=== PATIENT | female | born 1980 | race American Indian/Alaskan Native ===

== ENCOUNTER 2019-11-21 10:13 | Emergency (ER) | payer BC, OTHER ==
--- NOTE | 2019-11-21 11:48 | Event Note ---
ED Screening Note Date of service: 11/21/19 Time: 12:08 ED Screening Note: 39 y o female presents to ED cc of Nosebleed x this am with headache after incident Right Nostril x 3 minutes intermittent first episode no bleed in triage This initial assessment/diagnostic orders/clinical plan/treatment(s) is/are subject to change based on patients health status, clinical progression and re- assessment by fellow clinical providers in the ED. Further treatment and workup at subsequent clinical providers discretion. Patient/guardian urged not to elope from the ED as their condition may be serious if not clinically assessed and managed. Initial orders include: acc eval
[2019-11-21 12:11] VITALS: BP 115/78
[2019-11-21 13:12] LABS: Partial Thromboplastin Time 29.4 Sec. (24.2-36.6)
--- NOTE | 2019-11-21 15:00 | XRay Report ---
CHEST 2 VIEWS INDICATION / CLINICAL INFORMATION: cough. COMPARISON: None available. FINDINGS: SUPPORT DEVICES: None. HEART / MEDIASTINUM: No significant abnormality. LUNGS / PLEURA: No significant pulmonary or pleural abnormality. No pneumothorax. ADDITIONAL FINDINGS: No significant additional findings. IMPRESSION: 1. No acute findings. Signer Name: Alcno Garcia MD Signed: 11/21/2019 2:55 PM Workstation Name: [id number]
--- NOTE | 2019-11-21 16:45 | Cat Scan Report ---
CT BRAIN: 11/21/2019 INDICATION / CLINICAL INFORMATION: headache. COMPARISON: None available. FINDINGS: BRAIN/INTRACRANIAL STRUCTURES: Unenhanced CT images of the brain demonstrate no evidence of acute int racranial abnormality. Ventricles and sulci are normal in size and shape. There is no evidence of acute ischemic injury, hemorrhage, or mass. There are no abnormal extra-axial fluid collections. EXTRACRANIAL STRUCTURES: Incidental note is made of prominent posterior nasopharyngeal lymphoid tissu e, with no evidence of focal mass, within the limits of this technique. IMPRESSION: Negative unenhanced CT of the brain. All CT scans at this location are performed using dose reduction to ALARA by means of automated expos ure control. Signer Name: Jamarcus Aguayo MD Signed: 11/21/2019 4:41 PM Workstation Name: [id number]
--- NOTE | 2019-11-21 16:45 | Emergency Department Report ---
Upper Respiratory HPI - HPI Chief Complaint: Upper Respiratory Infection Stated Complaint: NOSWE BLEED, FEVER, BONES HURT Time Seen by Provider: 11/21/19 14:27 Duration: 2 Days URI Symptoms: Rhinorrhea: Yes, Sore Throat: No, Ear Pain: No, Cough: Yes, Shortness of Breath: No, Sick Contacts: No, Unable to Take Fluids: No, Urine Output Abnormal: No, Listless Behavior: No Other History: This is a 39-year-old male nontoxic, well nourished in appearance, no acute signs of distress presents to the ED with c/o of productive cough, nose bleed, headache, rhinorrhea, nasal congestion x2 days. Patient describes headache as diffuse with level of 3 out of 10. Patient denies thunderclap headache. Patient denies any radiation of pain. Patient denies any head trauma. Patient denies any visual changes. Patient denies worse headache. Patient describes productive cough as yellow mucus production. Patient deneis any sick contacts. Paient stated symptoms of nose bleed has been resolved since 9 AM. Patient denies any recent travels, long car, recent hospital stays. Patient denies any calf pain or calf tenderness. Patient denies any chest pain, short of breath, fever, chills, nausea, vomiting, hemoptysis, numbness, tingling, headache or stiff neck. Patient denies any allergies. - Home Meds and Allergies Home Medications: Previous Rx's Medication Instructions Recorded Last Taken Type Pnv95/Ferrous Fumarate/FA 1 each PO QDAY #30 tablet 12/07/13 03/27/14 Rx [ Vitamins] HYDROcodone/APAP 7.5-325 [[place] 1 each PO Q6HR PRN #16 tablet 06/16/14 Unknown Rx 7.5-325 mg TAB] Hydrocortisone 2.5% [Hytone 2.5% 1 applicatio TP TID #30 gm 06/16/14 Unknown Rx CREAM] Sulfamethoxazole/Trimethoprim 1 each PO Q12H #20 tablet 06/16/14 Unknown Rx [Bactrim Ds] Cyclobenzaprine [Flexeril] 10 mg PO BID PRN #10 tablet 07/27/17 Unknown Rx Ibuprofen [Motrin 600 MG tab] 600 mg PO Q8H PRN #30 tablet 07/27/17 Unknown Rx Azithromycin [Zithromax Z-ROXANE] 250 mg PO DAILY #6 tablet 11/21/19 Unknown Rx Benzonatate [Tessalon Perles] 100 mg PO Q8HR PRN #20 capsule 11/21/19 Unknown Rx Allergies/Adverse Reactions: Allergies Allergy/AdvReac Type Severity Reaction Status Date / Time No Known Allergies Allergy Verified 06/09/13 13:22 ED Review of Systems ROS: Stated complaint: NOSWE BLEED, FEVER, BONES HURT Other details as noted in HPI Constitutional: denies: chills, fever Eyes: denies: eye pain, eye discharge, vision change ENT: epistaxis, congestion. denies: ear pain, throat pain Respiratory: cough. denies: shortness of breath, wheezing Cardiovascular: denies: chest pain, palpitations Endocrine: no symptoms reported Gastrointestinal: denies: abdominal pain, nausea, diarrhea Genitourinary: denies: urgency, dysuria, discharge Musculoskeletal: denies: back pain, joint swelling, arthralgia Skin: denies: rash, lesions Neurological: headache. denies: weakness, paresthesias Psychiatric: denies: anxiety, depression Hematological/Lymphatic: denies: easy bleeding, easy bruising ED Past Medical Hx - Past Medical History Previous Medical History?: No Additional medical history: Vaginal delivery x 4 - Surgical History Past Surgical History?: No - Social History Smoking Status: Current Every Day Smoker Substance Use Type: Alcohol - Medications Home Medications: Home Medications Medication Instructions Recorded Confirmed Last Taken Type Pnv95/Ferrous Fumarate/FA 1 each PO QDAY #30 tablet 12/07/13 06/16/14 03/27/14 Rx [ Vitamins] HYDROcodone/APAP 7.5-325 [[place] 1 each PO Q6HR PRN #16 tablet 06/16/14 Unknown Rx 7.5-325 mg TAB] Hydrocortisone 2.5% [Hytone 2.5% 1 applicatio TP TID #30 gm 06/16/14 Unknown Rx CREAM] Sulfamethoxazole/Trimethoprim 1 each PO Q12H #20 tablet 06/16/14 Unknown Rx [Bactrim Ds] Cyclobenzaprine [Flexeril] 10 mg PO BID PRN #10 tablet 07/27/17 Unknown Rx Ibuprofen [Motrin 600 MG tab] 600 mg PO Q8H PRN #30 tablet 07/27/17 Unknown Rx Azithromycin [Zithromax Z-ROXANE] 250 mg PO DAILY #6 tablet 11/21/19 Unknown Rx Benzonatate [Tessalon Perles] 100 mg PO Q8HR PRN #20 capsule 11/21/19 Unknown Rx ED Bronchiolitis Physical Exam - Exam General: Vital signs noted. No distress. Alert and acting appropriately. No epistaxis. No hematoma nasal area. NEUROLOGIC: Cranial nerves II through XII are grossly intact. Alert and oriented x 3. Normal gait. Symmetrical strength and sensation. Reflexes 2+ throughout. Cerebellar testing normal. GCS score of 15. HEENT: Yes Rhinorrhea, No Pharyngeal Erythema, No Conjuctival Injection, No Dry Mucous Membranes Ear: Neither TM Bulge, Neither TM Erythema, Neither EAC Discharge Neck: No Adenopathy, No Rigidity Lungs: Yes Clear Lung Sounds, Yes Good Air Exchange, Yes Cough, No Wheezes, No Stridor, No Nasal Flaring, No Retractions, No Use of Accessory Muscles Heart: Yes Regular, No Murmur Abdomen: Yes Normal Bowel Sounds, No Tenderness, No Peritoneal Signs Skin: No Rash, No Eczema Neurologic: Alert and oriented, no deficits. Musculoskeletal: Unremarkable. ED Bronchiolitis Tests - Testing Testing: CXR: Normal/Negative ED Physical Exam - General Limitations: No Limitations ED Course Vital Signs 11/21/19 12:08 Temperature 98.8 F Pulse Rate 74 Respiratory 18 Rate Blood Pressure 115/78 O2 Sat by Pulse 98 Oximetry - Reevaluation(s) Reevaluation #1: 11/21/19 16:54 Patient is speaking in full sentences with no signs of distress noted. ED Medical Decision Making - Medical Decision Making This is a 39-year-old female that presents with bronchitis. Patient is stable and was examined by me. Chest x-ray and head CT has been obtained and dictated by radiologist with normal exam. Patient is notified of x-ray results with no questions noted. Due to patient having symptoms of upper respiratory infection and worsening I will treat patient empirically with zpak. Patient was instructed to increase hydration, rest and take Motrin for fever episodes. Vitals stable. Patient is nonfebrile and normal heart rate. Patient was instructed Follow-up with a primary care doctor in 3-5 days or if symptoms worsen and continue return to emergency room as soon as possible. At time time of discharge, the patient does not seem toxic or ill in appearance. No acute signs of distress noted. Patient agrees to discharge treatment plan of care. No further questions noted by the patient. Critical care attestation.: If time is entered above; I have spent that time in minutes in the direct care of this critically ill patient, excluding procedure time. ED Disposition Clinical Impression: Bronchitis Disposition: DC-01 TO HOME OR SELFCARE Is pt being admited?: No Does the pt Need Aspirin: No Condition: Stable Instructions: Acute Bronchitis (ED) Additional Instructions: Follow-up with a primary care doctor in 3-5 days or if symptoms worsen and continue return to emergency room as soon as possible. Prescriptions: Benzonatate [Tessalon Perles] 100 mg PO Q8HR PRN #20 capsule PRN Reason: Cough Azithromycin [Zithromax Z-ROXANE] 250 mg PO DAILY #6 tablet Referrals: PRIMARY CAREMD [Primary Care Provider] - 3-5 Days MICHI YU MD [Staff Physician] - 3-5 Days [facility] [Outside] - 3-5 Days Forms: Work/School Release Form(ED)
== END 2019-11-21 17:00 | disposition home or self-care (01) ==
LOC: ED 10:13
DX: J40 Bronchitis, not specified as acute or chronic (principal); F17.200 Nicotine dependence, unspecified, uncomplicated; Z79.899 Other long term (current) drug therapy; Z79.1 Long term (current) use of non-steroidal anti-inflammatories (NSAID)
CPT/HCPCS: 36415; 70450; 71046; 85610; 85730

== ENCOUNTER 2020-06-19 19:32 | Emergency (ER) | payer BC ==
[2020-06-19 19:43] VITALS: BP 132/73
--- NOTE | 2020-06-19 21:46 | XRay Report ---
RIGHT HAND 3 VIEW(S) INDICATION / CLINICAL INFORMATION: MAIN COMPARISON: None available. FINDINGS: BONES / JOINT(S): No acute fracture or subluxation. No significant arthritis. SOFT TISSUES: Mild soft tissue edema about the second/third MCP joints. ADDITIONAL FINDINGS: None. Signer Name: Dontrell Duong MD Signed: 06/19/2020 9:41 PM Workstation Name: [id number]
--- NOTE | 2020-06-19 23:08 | Emergency Department Report ---
Upper Extremity - HPI Chief Complaint: Extremity Injury, Upper Stated Complaint: RT HAND INJURY/SWOLLEN Time Seen by Provider: 06/19/20 22:54 Upper Extremity: Right Hand Occurred When: Today Mechanism: Other (NO TRAUMA) Severity: severe Symptoms: Yes Pain with Movement, Yes Limited Range of Movement, Yes Swelling, No Deformity, No Numbness, No Weakness, No Bruising/Ecchymosis, No Laceration or Abrasion Other History: Patient is a 40-year-old female that presents emergency room with complaints of right hand swelling and pain. Patient denies trauma. Patient denies fall. Patient denies injury to her right hand. Patient states that it started today at 4 PM and is worsening. Patient states that the site is red and itches. Patient denies fever and chills. Patient denies chest pain or shortness of breath. Patient denies recent travel. Patient denies recent international travel. Patient denies exposure to the novel coronavirus. Patient denies sick contacts. Patient denies fever and chills. Patient denies cough. Patient denies diarrhea. Patient denies coming in contact with anybody with symptoms of the novel coronavirus. ED Review of Systems ROS: Stated complaint: RT HAND INJURY/SWOLLEN Other details as noted in HPI Constitutional: denies: chills, fever Eyes: denies: eye pain, eye discharge, vision change ENT: denies: ear pain, throat pain Respiratory: denies: cough, shortness of breath, wheezing Cardiovascular: denies: chest pain, palpitations Endocrine: no symptoms reported Gastrointestinal: denies: abdominal pain, nausea, diarrhea Genitourinary: denies: urgency, dysuria, discharge Musculoskeletal: denies: back pain, joint swelling, arthralgia Skin: denies: rash, lesions Neurological: denies: headache, weakness, paresthesias Psychiatric: denies: anxiety, depression Hematological/Lymphatic: denies: easy bleeding, easy bruising ED Past Medical Hx - Past Medical History Previous Medical History?: Yes Additional medical history: Vaginal delivery x 4 - Surgical History Past Surgical History?: No - Family History Family history: no significant - Social History Smoking Status: Current Every Day Smoker Substance Use Type: Alcohol - Medications Home Medications: Home Medications Medication Instructions Recorded Confirmed Last Taken Type Pnv95/Ferrous Fumarate/FA 1 each PO QDAY #30 tablet 12/07/13 06/16/14 03/27/14 Rx [ Vitamins] HYDROcodone/APAP 7.5-325 [[place] 1 each PO Q6HR PRN #16 tablet 06/16/14 Unknown Rx 7.5-325 mg TAB] Hydrocortisone 2.5% [Hytone 2.5% 1 applicatio TP TID #30 gm 06/16/14 Unknown Rx CREAM] Sulfamethoxazole/Trimethoprim 1 each PO Q12H #20 tablet 06/16/14 Unknown Rx [Bactrim Ds] Cyclobenzaprine [Flexeril] 10 mg PO BID PRN #10 tablet 07/27/17 Unknown Rx Ibuprofen [Motrin 600 MG tab] 600 mg PO Q8H PRN #30 tablet 07/27/17 Unknown Rx Azithromycin [Zithromax Z-ROXANE] 250 mg PO DAILY #6 tablet 11/21/19 Unknown Rx Benzonatate [Tessalon Perles] 100 mg PO Q8HR PRN #20 capsule 11/21/19 Unknown Rx Doxycycline Hyclate [Doxycycline 100 mg PO Q12HR 10 Days #20 tab 06/19/20 Unknown Rx Hyclate TAB] methylPREDNISolone [Medrol 4MG 4 mg PO DAILY 6 Days #1 tab.ds.pk 06/19/20 Unknown Rx DOSEPAK (21 tabs)] Upper Extremity Exam - Exam General: Vital signs noted. No distress. Alert and acting appropriately. Head and Torso: No HEENT Abnormality, No Neck Tenderness, No Chest/Lungs Abnormality, No Abdominal Tenderness, No Back Tenderness Shoulder Exam: Yes Normal Range of Motion in Shoulder, No Shoulder Tenderness, No Clavicle Tenderness, No Shoulder Deformity, No AC Joint Tenderness Arm Exam: No Arm/Humerus Tenderness, No Arm Deformity Elbow: No Elbow Tenderness, No Normal Range of Motion in Elbow, No Elbow Deformity Forearm: No Forearm Tenderness, No Forearm Deformity, No Pain with Pronation, No Pain with Supination Wrist: Yes Normal ROM in Wrist, No Wrist Tenderness, No Wrist Deformity, No Snuffbox Tenderness, No Pain with Axial Thumb Compression Hand: Yes Hand Tenderness (Dorsal, medial swelling and tenderness to palpation.), Yes Normal ROM in Digit(s), No Hand Deformity, No Digit Tenderness, No Digit(s) Deformity, No Tendon Dysfunction CMS Exam: No Broken Skin, No Normal Distal Pulses, No Normal Capillary Refill, No Normal Distal Sensation ED Course Vital Signs 06/19/20 19:42 Temperature 98.2 F Pulse Rate 84 Respiratory 18 Rate Blood Pressure 132/73 O2 Sat by Pulse 98 Oximetry - Reevaluation(s) Reevaluation #1: I discussed all results and clinical findings with patient. I discussed plan of care with patient. Patient agrees with plan of care. Patient is stable for discharge. Patient will be discharged home. Patient given discharge instruct ions. Patient voiced understanding of discharge instructions.. 06/19/20 23:07 ED Medical Decision Making - Radiology Data Radiology results: report reviewed, image reviewed interpreted by me: Right hand x-ray: No acute findings except for soft tissue edema. No fracture, no dislocation. No foreign body. - Medical Decision Making Patient is a 40-year-old female that presents emergency room with complaints of right hand pain. Patient is unsure of what happened. Patient x-ray which was negative for acute findings of for soft tissue swelling. Patient clinical findings are consistent with a cellulitis. Patient was given steroids and antibiotics. Patient is stable for discharge. Patient does not require any further emergency room services. - Differential Diagnosis Strain, sprain, fracture, cellulitis, allergic reaction Critical care attestation.: If time is entered above; I have spent that time in minutes in the direct care of this critically ill patient, excluding procedure time. ED Disposition Clinical Impression: Cellulitis Qualifiers: Site of cellulitis: extremity Site of cellulitis of extremity: upper extremity Laterality: right Qualified Code(s): L03.113 - Cellulitis of right upper limb Disposition: DC-01 TO HOME OR SELFCARE Is pt being admited?: No Does the pt Need Aspirin: No Condition: Stable Instructions: Cellulitis (ED) Additional Instructions: Patient to follow-up with primary care in 2 to 3 days. Patient to follow-up with orthopedist in 2 to 3 days. Patient to rest. Patient to increase water. Patient to avoid strenuous exercise or heavy lifting or work until cleared by orthopedist. Patient to stay off work until cleared by orthopedist. Patient to take Tylenol or ibuprofen as needed for pain. Patient to take meds as directed. Patient to return to the ER if condition worsens, changes or new symptoms arise. Prescriptions: Doxycycline Hyclate [Doxycycline Hyclate TAB] 100 mg PO Q12HR 10 Days #20 tab methylPREDNISolone [Medrol 4MG DOSEPAK (21 tabs)] 4 mg PO DAILY 6 Days #1 tab.ds.pk Referrals: DARIN LYNCHMAYWOOD MD YAJAIRA [Primary Care Provider] - 2-3 Days RADHA DE LA CRUZ MD [Staff Physician] - 2-3 Days Time of Disposition: 23:12
== END 2020-06-19 23:15 | disposition home or self-care (01) ==
LOC: ED 19:32
DX: L03.113 Cellulitis of right upper limb (principal); F17.200 Nicotine dependence, unspecified, uncomplicated; Z79.1 Long term (current) use of non-steroidal anti-inflammatories (NSAID); Z79.2 Long term (current) use of antibiotics; Z79.899 Other long term (current) drug therapy